=== PATIENT | female | born 1985 | race Caucasian/White ===

== ENCOUNTER 2016-12-04 20:33 | Emergency (ER) | payer OTHER ==
[~2016-12-04] VITALS: Ht 165.1 cm; Wt 127.0 kg
[2016-12-04 20:37] VITALS: Ht 165.1 cm; Wt 127.0 kg
--- NOTE | 2016-12-04 21:25 | ERD ---
ER Documentation Chief Complaint Date/Time DATE: 12/04/16 TIME: 21:23 Chief Complaint vbpg started bleeding 2030 c/o back pain HPI This is a 31-year-old female presents to the ER with vaginal bleeding that started at 8:30 PM. Patient is currently with twins through IVF. Patient denies any pelvic pain, she does admit to lower back pain. Patient denies any other vaginal discharge. She denies urinary frequency or dysuria. A0. Patient states that her blood pressure is elevated today, she states she has high bp sometimes, however has never been diagnosed with HTN. She states her blood pressure has been very high over the last week. She is not taking any medication for her high blood pressure and states she has an appointment with her OB on Monday and was going to mention this. Patient does admit to headache, she denies right upper quadrant pain, dizziness. Patient denies any fevers or chills. ROS 12 point review of systems was done, all negative except per HPI. Medications Home Meds Active Scripts Cephalexin* (Keflex*) 500 Mg Capsule, 500 MG PO BID for 7 Days, CAP Prov:OMAR RODRIGUES Claudia 12/05/16 PMhx/Soc Medical and Surgical Hx: pt denies Medical Hx, pt denies Surgical Hx Hx Alcohol Use: No Hx Substance Use: No Hx Tobacco Use: No Smoking Status: Never smoker Physical Exam Vitals Vital Signs Date Time Temp Pulse Resp B/P Pulse Ox O2 Delivery O2 Flow Rate FiO2 12/05/16 00:15 126/76 12/05/16 00:00 121/64 12/04/16 23:40 115/70 12/04/16 23:15 116/78 12/04/16 22:40 122/77 12/04/16 20:37 99.7 125 18 180/84 100 Physical Exam GENERAL: The patient is well developed and appropriate for usual state of health , in no apparent distress. HEENT: Atraumatic. CHEST: Clear to auscultation bilaterally. There are no rales, wheezes or rhonchi. HEART: Regular rate and rhythm. No murmurs, clicks, rubs or gallops. ABDOMEN: Soft, nontender and nondistended. Good bowel sounds. No rebound or guarding. No gross peritonitis. No gross organomegaly or masses. No Copeland sign or McBurney point tenderness. BACK: No midline or flank tenderness. NEURO: Alert and oriented. Result Diagram: 12/04/16214712/04/162147 Results 24 hrs Laboratory Tests Test 12/04/16 21:30 12/04/16 21:48 Urine Color YELLOW Urine Clarity SLIGHTLY CLOUDY Urine pH 5.0 Urine Specific [place] 1.009 Urine Ketones NEGATIVEmg/dL Urine Nitrite NEGATIVEmg/dL Urine Bilirubin NEGATIVEmg/dL Urine Urobilinogen NEGATIVEmg/dL Urine Leukocyte Esterase 3+Iris/ul Urine Microscopic RBC > 182/HPF Urine Microscopic WBC 63/HPF Urine Squamous Epithelial Cells FEW/HPF Urine Hemoglobin 3+mg/dL Urine Glucose NEGATIVEmg/dL Urine Total Protein 1+mg/dl White Blood Count 9.910^3/ul Red Blood Count 4.6910^6/ul Hemoglobin 13.1g/dl Hematocrit 38.4% Mean Corpuscular Volume 81.9fl Mean Corpuscular Hemoglobin 27.9pg Mean Corpuscular Hemoglobin Concent 34.1g/dl Red Cell Distribution Width 13.9% Platelet Count 05150^3/UL Mean Platelet Volume 10.5fl Neutrophils % 66.6% Lymphocytes % 23.5% Monocytes % 8.3% Eosinophils % 0.9% Basophils % 0.3% Nucleated Red Blood Cells % 0.0/100WBC Neutrophils # 6.610^3/ul Lymphocytes # 2.310^3/ul Monocytes # 0.810^3/ul Eosinophils # 0.110^3/ul Basophils # 0.010^3/ul Nucleated Red Blood Cells # 0.010^3/ul Sodium Level 139mmol/L Potassium Level 3.6mmol/L Chloride Level 101mmol/L Carbon Dioxide Level 22mmol/L Anion Gap 20 Blood Urea Nitrogen 7mg/dl Creatinine 0.55mg/dl Glucose Level 96mg/dl Uric Acid 3.1mg/dl Calcium Level 10.3mg/dl Total Bilirubin 0.1mg/dl Direct Bilirubin 0.00mg/dl Indirect Bilirubin 0.1mg/dl Aspartate Amino Transf (AST/SGOT) 32IU/L Alanine Aminotransferase (ALT/SGPT) 48IU/L Alkaline Phosphatase 95IU/L Total Protein 8.0g/dl Albumin 4.7g/dl Globulin 3.30g/dl Albumin/Globulin Ratio 1.42 Beta HCG, Quantitative 090385.0mIU/ml [place] [id number] Radiology Main Line: [phone] DIAGNOSTIC IMAGING REPORT Patient: SHREYA MAR : 1985 Age: 31 Sex: F MR #: [id number] DOS: 12/04/162 Ordering MD: OMAR RODRIGUES PA-C Location: [facility] Room/Bed: PROCEDURE: US OB. CLINICAL INDICATION: Pelvic pain and vaginal bleeding. Positive test. TECHNIQUE: Multiple sonographic images of the uterus were obtained with transabdominal sonography. The images were reviewed on a PACS workstation. COMPARISON: No prior studies are available for comparison. FINDINGS: Twin A: heart rate is 184 beats per minute. [place]-rump length is 5.56 cm. Menstrual age by ultrasound dates is 12 weeks 1 day. The estimated date of delivery is 06/17/2017. Twin B: heart rate is 185 beats per minute. [place]-rump length is 5.71 cm. Menstrual age by ultrasound dates is 11 weeks 5 days. The estimated date of delivery is 06/20/2017. IMPRESSION: 1. Twin gestation as described above. RPTAT: QQ .Arnaud Ruiz MD, Date Time Electronically viewed and signed by .Arnaud Ruiz MD, on 12/04/2016 22:15 .R/ CC: OMAR RODRIGUES Procedures/MDM Differential diagnosis: Threatened , missed , incomplete , ectopic , molar , UTI, pyelonephritis. Patient does have a urinary tract infection which could be the cause of her bleeding. Ultrasound appeared normal with 2 intrauterine pregnancies, heart tones were found. His blood pressure was elevated to 180/84. Patient did have +1 protein in her urine. Liver function tests, creatnine, uric acid and platelets were normal. I consulted Laborist polymerization helper Dr. Olsen since this was concerning for preeclampsia. He suggested that we check the patient's vital signs every 15 minutes for a total of 5 readings. Vital Signs: 124/77 116/78 115/70 113/70 121/64 I discussed blood pressure readings with Laborist and patient is stable for outpatient follow up. She will be sent home with Keflex for her UTI and was told to follow with her OB as soon as possible regarding her blood pressure. At this time patient is well appearing and her vital signs are stable.Suspicion for pyelonephritis is low as she does no have any flank pain and is non toxic appearing. There was no evidence of anemia or electrolyte abnormalities. My medical decision making was shared with the patient she understands and agrees with plan. Departure Diagnosis: Primary Impression: Vaginal bleeding in patient at less than 20 weeks gestation Additional Impression: UTI (urinary tract infection) Condition: Stable OMAR RODRIGUES Dec 04, 2016 21:25
[2016-12-04 22:10] LABS: ADD SCAN DIFF NO
[2016-12-04 22:13] LABS: BASOPHILS % 0.3 % (0.0-2.0); EOSINOPHILS # 0.1 10^3/ul (0.0-0.5); EOSINOPHILS % 0.9 % (0.0-7.0); HEMATOCRIT 38.4 % (37.0-47.0); HEMOGLOBIN 13.1 g/dl (12.0-16.0); LYMPHOCYTES # 2.3 10^3/ul (0.8-2.9); LYMPHOCYTES % 23.5 % (15.0-51.0); MEAN CORPUSCULAR HEMOGLOBIN 27.9 pg (29.0-33.0); MEAN CORPUSCULAR HGB CONC 34.1 g/dl (32.0-37.0); MEAN CORPUSCULAR VOLUME 81.9 fl (82.0-101.0); MEAN PLATELET VOLUME 10.5 fl (7.4-10.4); MONOCYTE # 0.8 10^3/ul (0.3-0.9); MONOCYTES % 8.3 % (0.0-11.0); NEUTROPHIL # 6.6 10^3/ul (1.6-7.5); NEUTROPHILS % 66.6 % (39.0-77.0); PLATELET COUNT 280 10^3/UL (140-415); RED BLOOD COUNT 4.69 10^6/ul (4.20-5.40); RED CELL DISTRIBUTION WIDTH 13.9 % (11.5-14.5); WHITE BLOOD COUNT 9.9 10^3/ul (4.8-10.8)
--- NOTE | 2016-12-04 22:15 | RADRPT ---
PROCEDURE: US OB. CLINICAL INDICATION: Pelvic pain and vaginal bleeding. Positive test. TECHNIQUE: Multiple sonographic images of the uterus were obtained with transabdominal so nography. The images were reviewed on a PACS workstation. COMPARISON: No prior studies are available for comparison. FINDINGS: Twin A: heart rate is 184 beats per minute. [place]-rump length is 5.56 cm. Menstrual age by ultrasound dates is 12 weeks 1 day. The estimated date of delivery is 06/17/2017. Twin B: heart rate is 185 beats per minute. [place]-rump length is 5.71 cm. Menstrual age by ultrasound dates is 11 weeks 5 days. The estimated date of delivery is 06/20/2017. IMPRESSION: 1. Twin gestation as described above. RPTAT: QQ .Arnaud Ruiz MD, Date Time Electronically viewed and signed by .Arnaud Ruiz MD, on 12/04/2016 22:15 .R/
[2016-12-04 22:28] LABS: ADD UMIC YES; UR ASCORBIC ACID NEGATIVE (NEGATIVE); UR BILIRUBIN (Dip) NEGATIVE (NEGATIVE); UR BLOOD (Dip) 3+ mg/dL (NEGATIVE); UR CLARITY SLIGHTLY CLOUDY (CLEAR); UR COLOR YELLOW (YELLOW); UR GLUCOSE (Dip) NEGATIVE (NEGATIVE); UR KETONES (Dip) NEGATIVE (NEGATIVE); UR LEUKOCYTE ESTERASE (Dip) 3+ Leu/ul (NEGATIVE); UR NITRITE (Dip) NEGATIVE (NEGATIVE); UR RBC > 182 /HPF (0-5); UR SPECIFIC GRAVITY (Dip) 1.009 (1.003-1.030); UR SQUAMOUS EPITHELIAL CELL FEW /HPF (FEW); UR TOTAL PROTEIN (Dip) 1+ mg/dl (NEGATIVE); UR UROBILINOGEN (Dip) NEGATIVE (NEGATIVE)
[2016-12-04 22:35] LABS: ALBUMIN 4.7 g/dl (3.3-4.9); ALBUMIN/GLOBULIN RATIO 1.42; BILIRUBIN,INDIRECT 0.1 mg/dl (0-1.1); BILIRUBIN,TOTAL 0.1 mg/dl (0.2-1.3); CALCIUM 10.3 mg/dl (8.4-10.2); CREATININE 0.55 mg/dl (0.44-1.00); POTASSIUM 3.6 mmol/L (3.5-5.1)
[2016-12-05 00:15] VITALS: BP 126/76
[2016-12-05] MEDS ORDERED: CEPH-443 PO (00:29)
== END 2016-12-05 00:37 | disposition home or self-care (01) ==
LOC: FTE 20:33
DX: O20.9 Hemorrhage in early pregnancy, unspecified (principal); O23.41 Unspecified infection of urinary tract in pregnancy, first trimester; R10.2 Pelvic and perineal pain; Z3A.11 11 weeks gestation of pregnancy
CPT/HCPCS: 36415; 76801; 76802; 80053; 81001; 84560; 84702; 85025; 86900; 86901; 88305

== ENCOUNTER 2016-12-15 16:32 | Emergency (ER) | payer OTHER ==
[~2016-12-15] VITALS: Ht 165.1 cm; Wt 78.0 kg
[~2016-12-15 16:32] MED LIST: CEPH-443 PO
[2016-12-15 16:34] VITALS: Ht 165.1 cm; Wt 78.0 kg
[2016-12-15] MEDS ORDERED: HYDROCODONE/APAP (5/325) TAB PO ONE ×2 (17:30→21:30)
[2016-12-15] MEDS ORDERED: SOD CHLORIDE 0.9% 1,000 ML IV ONE (17:30)
--- NOTE | 2016-12-15 17:33 | ERD ---
ER Documentation Chief Complaint Date/Time DATE: 12/15/16 TIME: 17:26 Chief Complaint BIB RA FOR VAG BLEED WITH CRAMPING , MISCARRIGAE X 1 WEEK AGO HPI This pleasant 31-year-old female presents to emergency department with her entire family. Patient reports that she has vaginal bleeding since last night reported heavy saturating 10 peripads an hour. Patient reports that December 10 while in [place] she miscarriage to a 13 week of twins. Patient states that she did pass both fetuses one in the hotel room and one in the hospital. She went to her childcare provider yesterday for her first follow-up appointment states up until last night she was only bleeding a small amount. Patient reports dizziness, pelvic pain, and heavy vaginal bleeding. Denies nausea vomiting dysuria shortness of breath chest pain. ROS All systems reviewed and are negative except as per history of present illness. Medications Home Meds Active Scripts Nitrofurantoin Monohyd Macrocr* (Macrobid*) 100 Mg Capsr, 100 MG PO HS for 7 Days, CAP Prov:CHRISTINE,NAEEM 12/15/16 Hydrocodone/Acetaminophen ([place] 5-325 Tablet) 1 Each Tablet, 1 TAB PO Q6H Y for PAIN, #14 TAB Prov:CHRISTINE,NAEEM 12/15/16 Cephalexin* (Keflex*) 500 Mg Capsule, 500 MG PO BID for 7 Days, CAP Prov:OMAR RODRIGUES 12/05/16 Allergies Allergies: Coded Allergies: No Known Allergy (Unverified , 12/15/16) PMhx/Soc Medical and Surgical Hx: pt denies Medical Hx, pt denies Surgical Hx Hx Alcohol Use: No Hx Substance Use: No Hx Tobacco Use: No Physical Exam Vitals Vitals stable, triage notes reviewed Physical Exam Const: Well-nourished, well-hydrated, no acute distress Head: Atraumatic Eyes: Normal Conjunctiva PERRLA, EOMI ENT: Normal External Ears, Nose and Mouth. Mucous membranes moist Neck: Resp: Respirations even and unlabored, no respiratory distress Cardio: Abd: Pelvic pain to light palpation no CVA tenderness Skin: Back: No midline or flank tenderness Ext: Neur: Awake and alert Psych: Normal Mood and Affect Results 24 hrs Laboratory Tests Test 12/15/16 17:40 White Blood Count 15.310^3/ul Red Blood Count 3.9410^6/ul Hemoglobin 11.4g/dl Hematocrit 32.4% Mean Corpuscular Volume 82.2fl Mean Corpuscular Hemoglobin 28.9pg Mean Corpuscular Hemoglobin Concent 35.2g/dl Red Cell Distribution Width 13.7% Platelet Count 78673^3/UL Mean Platelet Volume 9.6fl Neutrophils % 76.9% Lymphocytes % 15.9% Monocytes % 6.0% Eosinophils % 0.5% Basophils % 0.2% Nucleated Red Blood Cells % 0.0/100WBC Neutrophils # 11.810^3/ul Lymphocytes # 2.410^3/ul Monocytes # 0.910^3/ul Eosinophils # 0.110^3/ul Basophils # 0.010^3/ul Nucleated Red Blood Cells # 0.010^3/ul Urine Color YELLOW Urine Clarity SLIGHTLY CLOUDY Urine pH 5.0 Urine Specific [place] 1.024 Urine Ketones TRACEmg/dL Urine Nitrite NEGATIVEmg/dL Urine Bilirubin NEGATIVEmg/dL Urine Urobilinogen NEGATIVEmg/dL Urine Leukocyte Esterase 1+Iris/ul Urine Microscopic RBC > 182/HPF Urine Microscopic WBC 61/HPF Urine Squamous Epithelial Cells FEW/HPF Urine Bacteria FEW/HPF Urine Mucus MANY/HPF Urine Hemoglobin 3+mg/dL Urine Glucose NEGATIVEmg/dL Urine Total Protein 2+mg/dl Beta HCG, Quantitative 23454.0mIU/ml Current Medications Medications (Trade) Dose Ordered Sig/Primo Route PRN Reason Start Time Stop Time Status Last Admin Dose Admin Sodium Chloride (NS) 1,000 ml @ 1,000 mls/hr Q1H ONCE IV 12/15/16 17:30 12/15/16 18:29 DC 12/15/16 17:46 Acetaminophen/ Hydrocodone Bitart ([place] (5/325)) 1 tab ONCE ONCE PO 12/15/16 17:30 12/15/16 17:31 DC 12/15/16 17:46 Acetaminophen/ Hydrocodone Bitart ([place] (5/325)) 1 tab ONCE ONCE PO 12/15/16 21:30 12/15/16 21:31 DC 12/15/16 21:13 Interpretation text CBC shows no evidence of [place] [address].0 this is a level consistent with a 7-8 week . Patient has documented spontaneous at 13 weeks. Procedures/MDM PROCEDURE: US Pelvis. CLINICAL INDICATION: vaginal bleeding TECHNIQUE: Multiple sonographic images of the pelvis were obtained utilizing a transabdominal and endovaginal technique. The images were reviewed on a PACS workstation. COMPARISON: 12/04/2016 FINDINGS: The uterus is normal in size and demonstrates a normal appearance of the myometrium. The endometrial stripe is markedly heterogeneous in appearance and has the thickness of 28 mm. There is increased vascularity in the endometrium. The previously seen to enter station is no longer visualized. The ovaries are not visualized. No free fluid is present within the pelvis.. IMPRESSION: The previously seen twin gestation is no longer visualized. Markedly thickened and heterogeneous endometrium with increased vascularity, suspicious for retained products of conception. Follow-up ultrasound is recommended. Electronically viewed and signed by .Mk Aguirre MD, on 12/15/2016 18: 46 Pelvic Exam: Bird [employer]age As[employer]er present Abdomen: Pelvic tenderness External Genitalia: Normal Skin Speculum: Normal vaginal mucosa, bloody cervical discharge with mucus noted, os does not appear open Bimanual: No adnexal masses or tenderness, No CMT This 31-year-old female presents to emergency department for evaluation of vaginal bleeding continuous on 12/10, twins.. 2 para 1 miscarriage twins. I have no suspicion for a urinary tract infection, pyelonephritis. Or urinary tract infection. Patient evaluation while in emergency department with laboratory testing, vaginal abdominal ultrasound, and a liter of normal saline, and [place] for pain. Patient reassessed after half an hour with improvement in pain symptoms. Ultrasound documents The previously seen twin gestation is no longer visualized. Markedly thickened and heterogeneous endometrium with increased vascularity, suspicious for retained products of conception. Dr. Melendrez notified, pelvic exam done by myself shows bright red blood, mucus, no products of conception, office not fully visualize, does not appear open. Dr. Melendrez recommend Pain treatment and to discharge home with strict return to emergency room precautions, for any worsening of vaginal bleeding or pain. To remain fasting in preparation for possible D&C. If bleeding does not continue our pain is controlled follow-up with childcare provider to schedule D&C. I feel the patient is stable for discharge at this time. I have discussed results, examination findings, the treatment plan with the patient and family present prior to discharge. Indications for emergent reevaluation, side effects of medication were also discussed. All questions were answered. Patient verbalizes understanding and agrees with plan of care. Departure Diagnosis: Primary Impression: UTI (urinary tract infection) Urinary tract infection type: site unspecified Hematuria presence: with hematuria Qualified Code: N39.0 - Urinary tract infection with hematuria, site unspecified Condition: Stable Patient Instructions: Missed Miscarriage Additional Instructions: Thank you for for coming to [facility] for your care today. Please ask your nurse or provider if you have questions about your care today and do not leave until all your questions have been answered. Please use any medications given as directed and follow-up with your doctor (or the doctor you were referred to) in the next 2-3 days. If you do not have a primary care doctor you may follow up at the [facility] (listed below). You may also use motrin and tylenol as needed for fever and/or pain unless instructed otherwise by your provider or nurse. Indications for more urgent follow-up have been discussed, but you may return to the Emergency Department at ANY time for any worrisome or worsening symptoms. If you have abdominal pain, please know that no test or exam you received is perfect and you should follow up within 8 hours for continued pain. If you had any imaging studies today, such as an X-Ray or CT Scan, these studies will be reviewed later by a radiologist. You will be called if there are important findings that were not identified today, so make sure the contact information you provided at registration is correct. If you received any narcotic pain control medicine today, such as Vicodin, Morphine or Dilaudid, your coordination and judgment may be affected for a number of hours. Please do not drive or operate heavy machinery, and you may want someone to assist you at home. If you were given a prescription for narcotic medication, be aware that it is very addictive- use sparingly and only if necessary. Comments Strict return to emergency room precautions; return to emergency department for increased vaginal bleeding of any type. Do not eat or drink anything tonight, call childcare provider in the morning. NAEEM KING Dec 15, 2016 17:33
[2016-12-15 17:55] LABS: BASOPHILS % 0.2 % (0.0-2.0); EOSINOPHILS # 0.1 10^3/ul (0.0-0.5); EOSINOPHILS % 0.5 % (0.0-7.0); HEMATOCRIT 32.4 % (37.0-47.0); HEMOGLOBIN 11.4 g/dl (12.0-16.0); LYMPHOCYTES # 2.4 10^3/ul (0.8-2.9); LYMPHOCYTES % 15.9 % (15.0-51.0); MEAN CORPUSCULAR HEMOGLOBIN 28.9 pg (29.0-33.0); MEAN CORPUSCULAR HGB CONC 35.2 g/dl (32.0-37.0); MEAN CORPUSCULAR VOLUME 82.2 fl (82.0-101.0); MEAN PLATELET VOLUME 9.6 fl (7.4-10.4); MONOCYTE # 0.9 10^3/ul (0.3-0.9); NEUTROPHIL # 11.8 10^3/ul (1.6-7.5); NEUTROPHILS % 76.9 % (39.0-77.0); PLATELET COUNT 354 10^3/UL (140-415); RED BLOOD COUNT 3.94 10^6/ul (4.20-5.40); RED CELL DISTRIBUTION WIDTH 13.7 % (11.5-14.5); WHITE BLOOD COUNT 15.3 10^3/ul (4.8-10.8)
[2016-12-15 18:30] LABS: ADD UMIC YES; UR ASCORBIC ACID NEGATIVE (NEGATIVE); UR BACTERIA FEW /HPF (NONE SEEN); UR BILIRUBIN (Dip) NEGATIVE (NEGATIVE); UR BLOOD (Dip) 3+ mg/dL (NEGATIVE); UR CLARITY SLIGHTLY CLOUDY (CLEAR); UR COLOR YELLOW (YELLOW); UR GLUCOSE (Dip) NEGATIVE (NEGATIVE); UR KETONES (Dip) TRACE mg/dL (NEGATIVE); UR LEUKOCYTE ESTERASE (Dip) 1+ Leu/ul (NEGATIVE); UR MUCUS MANY /HPF (NONE SEEN); UR NITRITE (Dip) NEGATIVE (NEGATIVE); UR RBC > 182 /HPF (0-5); UR SPECIFIC GRAVITY (Dip) 1.024 (1.003-1.030); UR SQUAMOUS EPITHELIAL CELL FEW /HPF (FEW); UR TOTAL PROTEIN (Dip) 2+ mg/dl (NEGATIVE); UR UROBILINOGEN (Dip) NEGATIVE (NEGATIVE)
--- NOTE | 2016-12-15 18:46 | RADRPT ---
PROCEDURE: US Pelvis. CLINICAL INDICATION: vaginal bleeding TECHNIQUE: Multiple sonographic images of the pelvis were obtained utilizing a transabdominal and endovaginal technique. The images were reviewed on a PACS workstation. COMPARISON: 12/04/2016 FINDINGS: The uterus is normal in size and demonstrates a normal appearance of the myometrium. The endometria l stripe is markedly heterogeneous in appearance and has the thickness of 28 mm. There is increased vascularity in the endometrium. The previously seen to enter station is no longer visualized. The ovaries are not visualized. No free fluid is present within the pelvis.. RPTAT: AA IMPRESSION: The previously seen twin gestation is no longer visualized. Markedly thickened and heterogeneous endometrium with increased vascularity, suspicious for retained products of conception. Follow-up ultrasound is recommended. .Mk Aguirre MD, Date Time Electronically viewed and signed by .Mk Aguirre MD, on 12/15/2016 18:46 .S/
[2016-12-15] MEDS ORDERED: HYDR-906 PO (21:13)
[2016-12-15] MEDS ORDERED: NITR-58 PO (21:20)
[2016-12-15 21:32] VITALS: BP 128/77; PULSE 77; RESP 16
== END 2016-12-15 21:33 | disposition home or self-care (01) ==
LOC: FTE 16:32
DX: N39.0 Urinary tract infection, site not specified (principal); R10.2 Pelvic and perineal pain
CPT/HCPCS: 76801; 76817; 81001; 84702; 85025; J7030; Z7610; 36415